=== PATIENT | female | born 1990 | race Caucasian/White ===

== ENCOUNTER 2021-07-05 11:37 | Emergency (ER) | payer BC, SELFPAY ==
[2021-07-05 11:39] VITALS: BP 135/93; PULSE 93; RESP 18; TEMP 37.2; O2SAT 100; BMI 37.8
--- NOTE | 2021-07-05 12:00 | EX.ED.DYSGE1 ---
HPI History of Present Illness Chief Complaint: Dizziness Informant: patient Onset/Context/Timing Onset: Yesterday Narrative Narrative: Patient developed congestion and body aches 2 days ago. Because of known exposure to COVID she did take a home test which was positive. She has now developed nausea and vomiting and cannot keep anything down. Her primary concern is that she has not been able to keep down her thyroid medication. [facility] Medical History (Updated 07/05/21 @ 15:[address] Yelena Saleh MD) Hypocalcemia Hypothyroidism Home Medications calcitriol 0.5 mcg PO BID 07/05/21 [History Last Taken Unknown] calcium carbonate-vitamin D3 1 cap PO TID 07/05/21 [History Last Taken Unknown] levothyroxine 137 mcg PO DAILY 07/05/21 [History Last Taken Unknown] ondansetron 4 mg PO Q8H PRN #10 tab 07/05/21 [Rx Last Taken Unknown] Allergy/AdvReac Type Severity Reaction Status Date / Time Penicillins [PCN] Allergy Swelling Verified 07/05/21 11:39 Surgical History H/O thyroidectomy Social History Smoking Status: Never smoker ROS ROS ED Constitutional Constitutional ED: Denies chills or fever(s) Eyes Eyes: Denies change in vision or discharge from eye(s) ENT ENT ED: Reports rhinorrhea and other Details: Congestion ; Denies discharge from eye(s) or sore throat Cardiovascular Cardiovascular: Denies chest pain or palpitations Respiratory/Chest Respiratory/Chest: Reports cough and sputum; Denies dyspnea Gastrointestinal Gastrointestinal: Reports nausea and vomiting; Denies abdominal pain or diarrhea Genitourinary Genitourinary ED: Denies difficulty urinating or dysuria Musculoskeletal Musculoskeletal: Reports myalgias; Denies back pain or extremity pain Integumentary Denies Abrasions or rash Neurologic Neurologic: Denies headache(s) or weakness Allergic/Immunologic Allergic/Immunologic ED: Denies lip swelling or urticaria EXAM Physical Exam Const Vital Signs: 07/05/21 11:39 07/05/21 13:00 07/05/21 15:00 Temperature 98.9 F Temperature Source Temporal Pulse Rate 93 86 Respiratory Rate 18 16 Respiratory Effort Normal Non-Labored Respiratory Pattern Normal Blood Pressure 135/93 H Blood Pressure Mean 107 Pulse Ox 100 99 Oxygen Delivery Method Room Air Room Air Positive well nourished and well developed General Appearance ED: well developed HEENT Reports normocephalic and head/scalp atraumatic Eyes PERRL and EOMs intact bilaterally Neck supple Chest Wall inspection of chest normal and palpation of chest normal Resp normal respiratory effort and clear to auscultation bilaterally Cardio regular rate and regular rhythm GI normal to inspection, nondistended, normoactive bowel sounds and non-tender Palpation: soft Back/Spine no CVA tenderness Extremity normal to inspection Neuro oriented x3 and no sensory deficits noted Sensorium / Orientation: alert Motor Exam: strength 5/5 throughout Psych mental status grossly normal Skin no rashes or lesions noted MDM MDM MDM Narrative Medical decision making narrative: Patient given IV fluids and lab work obtained. Patient placed on cardiac exercise specialist with no arrhythmia. Lab Data Attestation: I reviewed the patient's lab results. Labs: Laboratory Results - last 24 hr 07/05/21 07/05/21 12:20 12:20 WBC 6.5 RBC 5.02 Hgb 15.0 Hct 45.4 MCV 90.4 MCH 29.9 MCHC 33.0 RDW Std Deviation 40.6 RDW Coeff of Rosalba 12.3 Plt Count 289 MPV 9.6 Immature Gran % (Auto) 0.300 Neut % (Auto) 63.9 Lymph % (Auto) 21.3 [place] % (Auto) 13.3 H Eos % (Auto) 0.9 Baso % (Auto) 0.3 Absolute Neuts (auto) 4.1 Absolute Lymphs (auto) 1.38 Nucleated RBC % 0 Sodium 138 Potassium 3.8 Chloride 104 Carbon Dioxide 27.0 Anion Gap 7 BUN 7 Creatinine 0.79 Estim Creat Clear Calc 79.29 Est GFR (MDRD) Af Amer 110 Est GFR (MDRD) Non-Af 91 BUN/Creatinine Ratio 8.9 L Glucose 92 Calcium 6.7 L Treatment and Re-Evaluation Narrative: Lab work remarkable only for low calcium at 6.7. Nausea is improved. She is ordered her calcitriol and calcium/vitamin D and tolerates this orally without difficulty. She will be given a prescription for Zofran at home and will resume her home meds. Discharge Plan Triage Chief Complaint: Dizziness ED Provider: Yelena Saleh Dx/Rx/DC Orders Clinical Impression: COVID-19, Vomiting Instructions: Coronavirus Disease 2019 (COVID-19): Overview, Coronavirus Disease 2019 (COVID-19): Caring for Yourself or Others, ED Vomiting (Adult) Prescriptions: New ondansetron 4 mg tablet,disintegrating 4 mg PO Q8H PRN (Reason: nausea and vomiting) Qty: 10 RF: 0 No Action levothyroxine 137 mcg Tablet 137 mcg PO DAILY RF: 0 calcitriol 0.5 mcg Capsule 0.5 mcg PO BID RF: 0 calcium carbonate-vitamin D3 500 mg(1,250mg) -50 unit Capsule 1 cap PO TID RF: 0 Primary Care Provider: Care Physician,No Primary Referrals: Yocasta Verma MD [STAFF PHYSICIAN] - As Needed Care Physician,No Primary [Primary Care Provider] - Disposition Disposition: Home, Self Care
[2021-07-05 12:41] LABS: Anion Gap 7 (5-15); BUN 7 mg/dL (7-18); BUN/Creat Ratio 8.9 RATIO (10-20); Calcium,Total 6.7 mg/dL (8.5-10.1); Chloride 104 mmol/L (98-107); Creatinine, Serum 0.79 mg/dL (0.55-1.02); EST Glomerular Filtration Rate 91 mL/min (>60); Est Glom Filt Rate - Afr Amer 110 mL/min (>60); Estimated Creatinine Clearance 79.29 ml/min; Glucose 92 mg/dL (74-106); Potassium 3.8 mmol/L (3.5-5.1); Sodium Level 138 mmol/L (136-145)
[2021-07-05 12:43] LABS: Absolute Lymphocyte Count 1.38 X10^3/uL (0.83-4.51); Absolute Neutrophil Count 4.1 X10^3/uL (2.0-7.7); Basophil# 0.02 X10^3/uL; Basophil% 0.3 % (0-1); Eosinophil# 0.06 X10^3/uL; Eosinophils% 0.9 % (0-5); Hematocrit 45.4 % (37-47); Lymphocyte # 1.38 X10^3/ul (0.83-4.51); Lymphocyte % 21.3 % (19-41); Mean Corpuscular Hgb 29.9 pg (27.0-32.0); Mean Corpuscular Volume 90.4 fL (81-99); Mean Platelet Vol. 9.6 fl (6.2-12.0); Monocyte# 0.86 X10^3/uL; Monocyte% 13.3 % (0-10); NRBC Flagged by Analyzer 0 % (0-5); Neutrophil # 4.13 X10^3/uL (2.7-7.7); Neutrophil % 63.9 % (47-70); Platelet Count 289 K/mm3 (150-450); RBC Distribution Width CV 12.3 % (11.6-14.6); RBC Distribution Width SD 40.6 fl (35.1-43.9); Red Blood Count 5.02 M/mm3 (4.2-5.4); White Blood Count 6.5 K/mm3 (4.4-11.0)
[2021-07-05] MEDS: Ondansetron 4 MG/2 ML Vial IV (12:53)
[2021-07-05 15:00] VITALS: PULSE 86; RESP 16; O2SAT 99
[2021-07-05] MEDS: Calcitriol 0.25 MCG Capsule 0.5 MCG PO (15:13)
[2021-07-05] MEDS: Calcium Carb/Vitamin D 1 TABLET Tablet PO (15:13)
== END 2021-07-05 15:46 | disposition home or self-care (01) ==
PROVIDERS: Emergency Provider Emergency Medicine; Visit Provider Emergency Medicine
DX: U07.1 COVID-19 (principal); R42 Dizziness and giddiness; R11.2 Nausea with vomiting, unspecified; E03.9 Hypothyroidism, unspecified
CPT/HCPCS: 80048; 85025; 96361; 96374; 99285; J7050; A4216; J2405

== ENCOUNTER 2022-08-31 05:55 | Emergency (ER) | payer BC, SELFPAY ==
[2022-08-31 05:56] VITALS: BP 127/78; PULSE 93; RESP 16; TEMP 37.3; O2SAT 100; BMI 39.6
--- NOTE | 2022-08-31 06:13 | EX.ED.DYSGE1 ---
HPI History of Present Illness Chief Complaint: Numb/Ting Informant: patient Narrative Narrative: Patient with numbness tingling that started last night gradually, both sides of face, both arms, now this morning both legs and basically worse. No weakness. No vision changes. No trouble breathing, no headache, no recent injury. She states this is happened multiple times in the past when her calcium levels are low despite being compliant with her calcium supplements and her calcitriol, all of which she has been on since her thyroid and parathyroids were removed due to thyroid cancer. [facility] Medical History (Updated 08/31/22 @ 06:[address] Kenneth Cm MD) Hypocalcemia Hypothyroidism Thyroid cancer Home Medications calcitriol 0.5 mcg capsule 0.5 mcg PO BID 07/05/21 [History Last Taken Unknown] calcium carbonate-vitamin D3 500 mg (1,250 mg)-50 unit capsule 1 cap PO TID 07/05/21 [History Last Taken Unknown] levothyroxine 137 mcg tablet 137 mcg PO SUMOWETHFRSA 07/05/21 [History Last Taken Unknown] ondansetron 4 mg disintegrating tablet 4 mg PO Q8H PRN nausea and vomiting #10 tabs 07/05/21 [Rx Last Taken Unknown] levothyroxine 75 mcg tablet 75 mcg PO TU 08/31/22 [History Last Taken Unknown] topiramate 25 mg tablet 50 mg PO QHS 08/31/22 [History Last Taken Unknown] Allergy/AdvReac Type Severity Reaction Status Date / Time Penicillins [PCN] Allergy Swelling Verified 08/31/22 05:59 prednisone Allergy Swelling Verified 08/31/22 05:59 Surgical History H/O thyroidectomy Social History Smoking Status: Never smoker ROS ROS ED Constitutional Constitutional ED: Denies chills or fever(s) Eyes Eyes: Denies change in vision or diplopia ENT ENT ED: Denies rhinorrhea or sore throat Cardiovascular Cardiovascular: Denies chest pain or palpitations Respiratory/Chest Respiratory/Chest: Denies cough or dyspnea Gastrointestinal Gastrointestinal: Denies abdominal pain, diarrhea, nausea or vomiting Genitourinary Genitourinary ED: Denies dysuria or hematuria Musculoskeletal Musculoskeletal: Denies back pain or neck pain Integumentary Denies abscess or rash Neurologic Neurologic: Reports paresthesias; Denies headache(s) or weakness Psychiatric Psychiatric: Denies anxiety or suicidal thoughts EXAM Physical Exam Const Vital Signs: 08/31/22 05:56 Temperature 99.1 F Temperature Source Temporal Pulse Rate 93 Respiratory Rate 16 Blood Pressure 127/78 H Blood Pressure Mean 94 Pulse Ox 100 Oxygen Delivery Method Room Air Positive well nourished and well developed General Appearance ED: well developed and NAD HEENT Reports moist mucous membranes normocephalic and atraumatic Eyes PERRL and EOMs intact bilaterally Neck full ROM and supple Resp normal respiratory effort and clear to auscultation bilaterally Cardio regular rate, regular rhythm and no murmurs Rate: Negative for tachycardic Back/Spine no CVA tenderness General Back: other FROM Extremity normal to inspection General Extremety ED: Negative for edema, pulses abnormal or tenderness General Extremity: Negative for edema or pulses abnormal Neuro oriented x3, CN's II-XII intact bilaterally and no sensory deficits noted Sensorium / Orientation: awake and alert Motor Exam: strength 5/5 throughout Skin no rashes or lesions noted and no wounds MDM MDM MDM Narrative Medical decision making narrative: Patient is hypocalcemic at 7.0, she was lowered to the last time she was here for this. I did consider obtaining liver enzymes to check her albumin level, however since she is symptomatic I do not think that is necessary right now emergently, she was given a gram of IV calcium gluconate over an hour, and she is comfortable with going home after that, and following up with her hvac services professional. Advised to continue her calcitriol and calcium supplements as previously prescribed until she follows up. Lab Data Attestation: I reviewed the patient's lab results. 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), Hypocalcemia Instructions: ED Hypocalcemia (Adult) Prescriptions: Continued levothyroxine 137 mcg Tablet 137 mcg PO SUMOWETHFRSA calcitriol 0.5 mcg Capsule 0.5 mcg PO BID calcium carbonate-vitamin D3 500 mg(1,250mg) -50 unit Capsule 1 cap PO TID ondansetron 4 mg tablet,disintegrating 4 mg PO Q8H PRN (Reason: nausea and vomiting) Qty: 10 0RF levothyroxine 75 mcg tablet 75 mcg PO TU topiramate 25 mg tablet 50 mg PO QHS Primary Care Provider: Care Physician,No Primary Referrals: Care Physician,No Primary [Primary Care Provider] - Doctor,Your [Non-Staff] - (Follow-up with your hvac services professional via telephone to see if they want to adjust any medications or see you in the office again, obtain other blood work, etc.) Activity Restrictions/Additional Instructions: Ca level 7.0 today Disposition Disposition: Home, Self Care
[2022-08-31 06:35] LABS: Anion Gap 9 (5-15); BUN 12 mg/dL (7-18); BUN/Creat Ratio 12.2 RATIO (10-20); Chloride 109 mmol/L (98-107); Creatinine, Serum 0.99 mg/dL (0.55-1.02); EST Glomerular Filtration Rate 70 mL/min (>60); Est Glom Filt Rate - Afr Amer 85 mL/min (>60); Glucose 103 mg/dL (74-106); Potassium 3.4 mmol/L (3.5-5.1); Sodium Level 140 mmol/L (136-145)
[2022-08-31 07:51] VITALS: BP 122/64
== END 2022-08-31 07:56 | disposition home or self-care (01) ==
PROVIDERS: Emergency Provider Emergency Medicine; Visit Provider Emergency Medicine
DX: E20.9 Hypoparathyroidism, unspecified (principal); E03.9 Hypothyroidism, unspecified; Z79.899 Other long term (current) drug therapy; E89.0 Postprocedural hypothyroidism; E83.51 Hypocalcemia; Z85.850 Personal history of malignant neoplasm of thyroid
CPT/HCPCS: 80048; 96365; 96366; 99282; A4216; J0612

== ENCOUNTER 2023-04-30 13:43 | Outpatient (CLI) | payer MEDICAID, SELFPAY ==
[2023-04-30 14:02] VITALS: BP 129/75; PULSE 96; RESP 16; TEMP 36.7
[2023-04-30 14:39] VITALS: BMI 41.8
[2023-04-30 14:59] VITALS: BP 132/66; PULSE 76; RESP 16; TEMP 36.5
--- NOTE | 2023-04-30 20:43 | OB.TRI.HP_ITS ---
HPI - General General Date of Admission: 04/30/23 Date of Service: 04/30/23 Chief Complaint: contractions HPI Narrative BRIGHT SPRAGUE, is a 32 F who presents at 38+5 for r/o labor. Maternal Data Information Final SEVERINO: 05/09/23 Gestational age: 38+5 [facility] Medical History (Updated 04/30/23 @ 20:[address] Yelena Bosch MD) COVID-19 Thyroid cancer Home Medications calcitriol 0.5 mcg capsule 0.5 mcg PO DAILY 10/19/20 [History Last Taken Unknown] calcium cit 250 mg-ergocalciferol (vit D2) 2.5 mcg (100 unit) tablet tab PO 10/19/20 [History Last Taken Unknown] levothyroxine 150 mcg tablet ea PO 10/19/20 [History Last Taken Unknown] metformin 500 mg tablet 500 mg PO DAILY 10/19/20 [History Last Taken Unknown] aspirin 81 mg tablet,delayed release (Adult Low Dose Aspirin) 81 mg PO DAILY 04/30/23 [History Last Taken Unknown] Allergy/AdvReac Type Severity Reaction Status Date / Time No Known Allergies Allergy Verified 04/30/23 15:06 Family History (Updated 10/19/20 @ 14:17 by Feli Moscoso) Other Diabetes Hypertension Surgical History (Updated 10/19/20 @ 14:16 by Feli Moscoso) History of thyroidectomy Social History (Updated 10/19/20 @ 14:17 by Feli Moscoso) Smoking Status: Never smoker alcohol intake: current alcohol intake frequency: a few times a week History 1 Elective abortions Hx Para 0 Spontaneous abortions Hx # Term Pregnancies Ectopic pregnancies Hx # Pregnancies Multiple births # of living children NST FHR Rate Baby A Baseline: 130 Variability:: Moderate Accelerations:: 15 x 15 Decelerations:: None NST Reactive:: Yes FHR Category:: Category I Uterine Activity:: occasional contraction Assessment & Plan (1) 38 weeks gestation of : (2) False labor after 37 completed weeks of gestation: PLAN: Plan cervix closed. Discharged with labor precautions
== END 2023-04-30 14:54 | disposition home or self-care (01) ==
LOC: WPOUT 13:55 → WP 13:55
PROVIDERS: PCP Nurse Practitioner Family; Referring Provider Obstetrics & Gynecology; Visit Provider Obstetrics & Gynecology
DX: O47.1 False labor at or after 37 completed weeks of gestation (principal); Z3A.38 38 weeks gestation of pregnancy
CPT/HCPCS: 59025; 59050; 99221; G0378

== ENCOUNTER 2023-05-02 19:00 | Inpatient (IN) | payer MEDICAID, SELFPAY ==
[2023-05-02 19:34] VITALS: PULSE 103; RESP 16; O2SAT 96
[2023-05-02 19:35] VITALS: BP 123/75; PULSE 109; PULSE 85; TEMP 36.6; O2SAT 93; O2SAT 97
[2023-05-02 19:40] VITALS: BMI 42.7
--- NOTE | 2023-05-02 20:18 | HP.PCM.OB_ITS ---
HPI - General General Date of Admission: 05/02/23 HPI Narrative BRIGHT SPRAGUE, is a 32 F at 39 weeks gestation who presents for scheduled induction of labor for obesity. complicated by anemia, and history of thyroidectomy and LGSIL. Maternal Data Information SEVERINO Calculator Estimated Delivery Date Method Current WG Current Estimate 05/09/23 Manual 39w 0d Final SEVERINO: 05/09/23 PFSH PFSH Medical History (Updated 05/02/23 @ 20:29 by Cristal Kelley CNM) Hypocalcemia Hypothyroidism Thyroid cancer Home Medications calcitriol 0.5 mcg capsule 0.5 mcg PO BID 07/05/21 [History Last Taken Unknown] calcium carbonate-vitamin D3 500 mg (1,250 mg)-50 unit capsule 1 cap PO TID 07/05/21 [History Last Taken Unknown] levothyroxine 137 mcg tablet 137 mcg PO SUMOWETHFRSA 07/05/21 [History Last Take n Unknown] ondansetron 4 mg disintegrating tablet 4 mg PO Q8H PRN nausea and vomiting #10 tabs 07/05/21 [Rx Last Taken Unknown] levothyroxine 75 mcg tablet 75 mcg PO TU 08/31/22 [History Last Taken Unknown] topiramate 25 mg tablet 50 mg PO QHS 08/31/22 [History Last Taken Unknown] Allergy/AdvReac Type Severity Reaction Status Date / Time prednisone Allergy Swelling Verified 05/02/23 19:43 Surgical History (Updated 05/02/23 @ 20:23 by Cristal Kelley CNM) H/O thyroidectomy Social History Smoking Status: Never smoker ROS Eyes Eyes: Denies blurry vision, change in vision or spots in vision ENT HEENT: Denies dizziness or headache(s) Cardiovascular Cardiovascular: Denies abdominal pain, chest pain or dyspnea Respiratory/Chest Respiratory/Chest: Denies cough, dyspnea, shortness of breath at rest or shortness of breath with exertion Gastrointestinal Gastrointestinal: Denies abdominal pain, diarrhea or vomiting Genitourinary Genitourinary: Denies change in urinary stream, difficulty urinating or dysuria Musculoskeletal Musculoskeletal: Reports none Integumentary Integumentary: Denies rash Neurologic Neurologic: Denies dizziness, headache(s), memory loss or weakness Psychiatric Psychiatric: Reports none Vital Signs Vital Signs Vital Signs: 05/02/23 19:35 05/02/23 19:35 05/02/23 19:35 Temperature Temperature Source Pulse Rate 85 Respiratory Rate Blood Pressure 123/75 H BP Systolic 123 BP Diastolic 75 Pulse Ox 97 05/02/23 19:35 05/02/23 19:34 05/02/23 19:34 Temperature Temperature Source Pulse Rate 109 H 103 H Respiratory Rate 16 Blood Pressure BP Systolic BP Diastolic Pulse Ox 05/02/23 19:35 05/02/23 19:34 05/02/23 19:35 Temperature Temperature Source Temporal Pulse Rate Respiratory Rate Blood Pressure BP Systolic BP Diastolic Pulse Ox 93 96 05/02/23 19:35 Temperature 97.8 F Temperature Source Pulse Rate Respiratory Rate Blood Pressure BP Systolic BP Diastolic Pulse Ox Weight Weight: 226 lb 8 oz Body Mass Index (BMI) 42.7 Physical Exam Const alert, oriented x3 and no apparent distress General Appearance: cooperative Orientation / Consciousness: awake Exam Limitations: no limitations HEENT normocephalic Head and Scalp: normal to inspection Eyes General Eye: normal appearance of both eyes Neck full ROM and no lymphadenopathy Lymph Lymphatic: no lymphadenopathy noted Chest inspection of chest normal Resp normal respiratory effort, normal air movement and clear to auscultation bilaterally Effort and Inspection: able to speak in complete sentences and symmetric chest movement Cardio regular rate and regular rhythm GI normal to inspection, nondistended, normoactive bowel sounds Back/Spine normal ROM Extremity full ROM and no calf tenderness Skin no rashes or lesions noted General Skin Exam: no breakdown Neuro oriented x3 and CN's II-XII intact bilaterally Psych mental status grossly normal and thought process normal Labs Labs Labs: Hct 45.4 % (37-47) Hgb 15.0 g/dL (12.0-15.0) GBS negative Assessment & Plan (1) H/O thyroidectomy: (2) 39 weeks gestation of : (3) Encounter for induction of labor: (4) Obesity affecting : QUALIFIERS: Trimester: third trimester Obesity type affecting : unspecified obesity Qualified Code(s): O99.213 - Obesity co mplicating , third trimester (5) LGSIL on Pap smear of cervix: PLAN: Plan Admit to labor and delivery GBS negative CE- closed/thick/high Cytotec 25 mcg PO x 1 now and continue every 4 hours with a maximum of [address] Doshi aware of admission, plan of care and is collaborating physician
[2023-05-02] MEDS: 0.9% Saline Lock 10 ML Syringe IV (20:52)
[2023-05-02 21:18] LABS: Absolute Lymphocyte Count 2.77 X10^3/uL (0.83-4.51); Absolute Neutrophil Count 8.7 X10^3/uL (2.0-7.7); Basophil# 0.05 X10^3/uL; Basophil% 0.4 % (0-1); Eosinophil# 0.11 X10^3/uL; Eosinophils% 0.8 % (0-5); Hematocrit 39.2 % (37-47); Lymphocyte # 2.77 X10^3/ul (0.83-4.51); Lymphocyte % 21.3 % (19-41); Mean Corp Hgb Conc 33.2 g/dL (32-36); Mean Corpuscular Volume 87.3 fL (81-99); Mean Platelet Vol. 10.4 fl (6.2-12.0); Monocyte# 1.24 X10^3/uL; Monocyte% 9.5 % (0-10); NRBC Flagged by Analyzer 0 % (0-5); Neutrophil # 8.72 X10^3/uL (2.7-7.7); Neutrophil % 66.9 % (47-70); Platelet Count 292 K/mm3 (150-450); RBC Distribution Width CV 14.5 % (11.6-14.6); RBC Distribution Width SD 46.2 fl (35.1-43.9); Red Blood Count 4.49 M/mm3 (4.2-5.4)
[2023-05-02] MEDS: CHLORHEXIDINE GLUC 2% CLOTH 1 EACH TOWELETTE TOPICAL (21:33)
[2023-05-02] MEDS: miSOPROStol 25 MCG TABLET PO (21:33)
[2023-05-02 21:50] VITALS: PULSE 84; RESP 16; O2SAT 97
[2023-05-02 21:51] VITALS: BP 122/66; PULSE 82; TEMP 36.9
[2023-05-02 21:52] LABS: Syphilis Antibodies Non-reactive
[2023-05-02 23:15] VITALS: RESP 16; TEMP 36.8; O2SAT 98
[2023-05-02 23:16] VITALS: BP 133/80; PULSE 93
[2023-05-02] MEDS: Lactated Ringers 1,000 ML 50 ML IV (23:47)
[2023-05-03] VITALS (63 sets, daily range): BP systolic 113–145; BP diastolic 55–94; PULSE 68–97; RESP 15–20; TEMP 36.4–37.3; O2SAT 96–100
[2023-05-03] MEDS: LACTATED RINGERS 250 ML 999 ML IV (00:35)
[2023-05-03] MEDS: miSOPROStol 25 MCG TABLET PO ×3 (01:37→09:48)
--- NOTE | 2023-05-03 07:02 | PCM.PN.CNM ---
Subjective Subjective Patient seen at bedside. Denies pain. Starting to feel mild cramps. Objective Data Objective Data Vital Signs: Vital Signs Temp Pulse Resp BP Pulse Ox 97.5 F L 87 16 137/71 H 99 05/03/23 05:36 05/03/23 05:38 05/03/23 05:36 05/03/23 05:38 05/03/23 05:36 Weight: 226 lb 8 oz Body Mass Index (BMI) 42.7 Intake & Output: Intake and Output for Last 24 Hours 05/01/23 05/02/23 05/03/23 23:59 23:59 23:59 Intake Total 250 / 250 Balance 250 / 250 Lab / Micro Data 05/02/23 20:10 Labs: Laboratory Results - last 24 hr 05/02/23 20:10: WBC 13.0 H, RBC 4.49, Hgb 13.0, Hct 39.2, MCV 87.3, MCH 29.0, MCHC 33.2, RDW Std Deviation 46.2 H, RDW Coeff of Rosalba 14.5, Plt Count 292, MPV 10.4, Immature Gran % (Auto) 1.100 H, Neut % (Auto) 66.9, Lymph % (Auto) 21.3, [place] % (Auto) 9.5, Eos % (Auto) 0.8, Baso % (Auto) 0.4, Absolute Neuts (auto) 8.7 H, Absolute Lymphs (auto) 2.77, Nucleated RBC % 0, Syphilis Total Ab Non-reactive, Blood Type O POSITIVE, Antibody Screen NEGATIVE ROS Eyes Eyes: Denies blurry vision, change in vision or spots in vision ENT HEENT: Denies dizziness or headache(s) Cardiovascular Cardiovascular: Denies abdominal pain, chest pain or dyspnea Respiratory/Chest Respiratory/Chest: Denies cough, dyspnea, shortness of breath at rest or shortness of breath with exertion Gastrointestinal Gastrointestinal: Denies abdominal pain, diarrhea or vomiting Genitourinary Genitourinary: Denies change in urinary stream, difficulty urinating or dysuria Musculoskeletal Musculoskeletal: Reports none Integumentary Integumentary: Denies rash Neurologic Neurologic: Denies dizziness, headache(s), memory loss or weakness Physical Exam Const alert and no apparent distress General Appearance: cooperative Orientation / Consciousness: awake Exam Limitations: no limitations HEENT normocephalic Eyes General Eye: normal appearance of both eyes Neck full ROM Chest inspection of chest normal Resp normal respiratory effort and normal air movement Effort and Inspection: symmetric chest movement Auscultation: clear to auscultation bilaterally Cardio regular rate GI soft to palpation, non-tender and non-distended Inspection: and other Back/Spine normal ROM Extremity full ROM, normal capillary refill and no calf tenderness Skin no rashes or lesions noted Neuro oriented x3 and CN's II-XII intact bilaterally Psych mental status grossly normal NST FHR Rate Baby A Baseline: 140 Variability:: Moderate Accelerations:: 15 x 15 Decelerations:: None NST Reactive:: Yes FHR Category:: Category I Uterine Activity:: Irritability Assessment & Plan (1) Encounter for induction of labor: (2) 39 weeks gestation of : (3) H/O thyroidectomy: (4) Obesity affecting : QUALIFIERS: Trimester: third trimester Obesity type affecting : unspecified obesity Qualified Code(s): O99.213 - Obesity complicating , third trimester (5) LGSIL on Pap smear of cervix: (6) Hypothyroidism: PLAN: Plan CE- closed /thick/ posterior- per nursing Cytotec 25 mcg PO every 4 hours- Just took dose #3 NST reactive Patient to eat light breakfast Anticipate placement Gomez once 1cm
[2023-05-03] MEDS: 0.9% Normal Saline Single 100 ML IV.SOLN. INTRA-UTER (08:30)
[2023-05-03] MEDS: CHLORHEXIDINE GLUC 2% CLOTH 1 EACH TOWELETTE TOPICAL ×2 (08:48→21:40)
--- NOTE | 2023-05-03 08:49 | PN.OBGYN_ITS ---
Subjective Subjective Resting comfortably in bed. Partner at bedside Objective Data Objective Data Vital Signs: Vital Signs Temp Pulse Resp BP Pulse Ox 97.5 F L 87 16 137/71 H 99 05/03/23 05:36 05/03/23 05:38 05/03/23 05:36 05/03/23 05:38 05/03/23 05:36 Weight: 226 lb 8 oz Body Mass Index (BMI) 42.7 Intake & Output: Intake and Output for Last 24 Hours 05/01/23 05/02/23 05/03/23 23:59 23:59 23:59 Intake Total 250 / 250 Balance 250 / 250 Lab / Micro Data 05/02/23 20:10 Labs: Laboratory Results - last 24 hr 05/02/23 20:10: WBC 13.0 H, RBC 4.49, Hgb 13.0, Hct 39.2, MCV 87.3, MCH 29.0, MC HC 33.2, RDW Std Deviation 46.2 H, RDW Coeff of Rosalba 14.5, Plt Count 292, MPV 10.4, Immature Gran % (Auto) 1.100 H, Neut % (Auto) 66.9, Lymph % (Auto) 21.3, [place] % (Auto) 9.5, Eos % (Auto) 0.8, Baso % (Auto) 0.4, Absolute Neuts (auto) 8.7 H, Absolute Lymphs (auto) 2.77, Nucleated RBC % 0, Syphilis Total Ab Non- reactive, Blood Type O POSITIVE, Antibody Screen NEGATIVE Physical Exam Manual OB Exam: presentation cephalic, dilated closed, effaced 50%, station -3 and other coleman catheter inserted through cervix with stylus. 30ml NS instilled. Patient tolerated well NST FHR Rate Baby A Baseline: 130 Variability:: Moderate Accelerations:: 15 x 15 Decelerations:: None FHR Category:: Category I Uterine Activity:: Irregular, mild Assessment & Plan (1) Obesity affecting : QUALIFIERS: Trimester: third trimester Obesity type affecting : unspecified obesity Qualified Code(s): O99.213 - Obesity complicating , third trimester (2) Encounter for induction of labor: (3) 39 weeks gestation of : PLAN: Plan 1) Continue with active management. Coleman placed and will determine if cytotec to be given at 0945 or start pitocin based on cervical exam. 2) Continuous EFM, Category 1 FHT 3) Dr. Olson collaborative physician, notified of patient status and of above assessment and plan
[2023-05-03] MEDS: LACTATED RINGERS 500 ML 999 ML IV ×2 (09:14→18:18)
[2023-05-03] MEDS: Ondansetron 4 MG/2 ML Vial IV ×2 (10:19→23:56)
[2023-05-03] MEDS: Acetaminophen 500 MG Tablet PO (12:47)
[2023-05-03] MEDS: Levothyroxine 137 MCG Tablet PO (12:48)
[2023-05-03] MEDS: Oxytocin 15 Units/NS 250ml 15 UNITS/250 ML IV.SOLN 2 UNITS IV (13:47)
--- NOTE | 2023-05-03 18:00 | PN.OBGYN_ITS ---
Subjective Subjective Sitting up at side of bed on peanut ball, coping well with contractions. Partner at bedside and mother. Objective Data Objective Data Vital Signs: Vital Signs Temp Pulse Resp BP Pulse Ox 99.1 F 84 18 128/74 H 98 05/03/23 15:00 05/03/23 17:59 05/03/23 15:56 05/03/23 17:59 05/03/23 15:56 Weight: 226 lb 8 oz Body Mass Index (BMI) 42.7 Intake & Output: Intake and Output for Last 24 Hours 05/01/23 05/02/23 05/03/23 23:59 23:59 23:59 Intake Total 766.13 / 766.13 Balance 766.13 / 766.13 Lab / Micro Data 05/02/23 20:10 Labs: Laboratory Results - last 24 hr 05/02/23 20:10: WBC 13.0 H, RBC 4.49, Hgb 13.0, Hct 39.2, MCV 87.3, MCH 29.0, MCHC 33.2, RDW Std Deviation 46.2 H, RDW Coeff of Rosalba 14.5, Plt Count 292, MPV 10.4, Immature Gran % (Auto) 1.100 H, Neut % (Auto) 66.9, Lymph % (Auto) 21.3, [place] % (Auto) 9.5, Eos % (Auto) 0.8, Baso % (Auto) 0.4, Absolute Neuts (auto) 8.7 H, Absolute Lymphs (auto) 2.77, Nucleated RBC % 0, Syphilis Total Ab Non- reactive, Blood Type O POSITIVE, Antibody Screen NEGATIVE Physical Exam Manual OB Exam: presentation cephalic, dilated 4cm, effaced 60%, station - 2 and other arom clear fluid NST FHR Rate Baby A Baseline: 160 Variability:: Moderate Accelerations:: 15 x 15 Decelerations:: None FHR Category:: Category I and Category II Uterine Activity:: every 2 to 4 minutes, irregular Assessment & Plan (1) Encounter for induction of labor: (2) 39 weeks gestation of : (3) Obesity affecting : QUALIFIERS: Trimester: third trimester Obesity type affecting : unspecified obesity Qualified Code(s): O99.213 - Obesity complicating , third trimester PLAN: Plan 1) Continue with active management and pitocin induction 2) AROM clear fluid 3) Planning epidural for pain management 4) collaborative physician and notified of patient status and above assessment and plan.
[2023-05-03] MEDS: fentaNYL-bupivacaine (epidural) 100 ML BAG EPIDURAL (20:00)
[2023-05-03] MEDS: Lactated Ringers 1,000 ML 200 ML IV (20:42)
[2023-05-03] MEDS: Calcium Carb/Vitamin D 1 TABLET Tablet PO (21:40)
[2023-05-03] MEDS: 0.9% Saline Lock 10 ML Syringe IV (23:56)
[2023-05-04] VITALS (29 sets, daily range): BP systolic 98–134; BP diastolic 47–86; PULSE 65–114; RESP 14–23; TEMP 36.1–36.9; O2SAT 94–100
[2023-05-04] MEDS: LACTATED RINGERS 500 ML 999 ML IV (00:07)
[2023-05-04] MEDS: fentaNYL-bupivacaine (epidural) 100 ML BAG EPIDURAL (02:05)
[2023-05-04] MEDS: Lactated Ringers 1,000 ML 200 ML IV (02:47)
[2023-05-04] MEDS: Acetaminophen 500 MG Tablet PO (03:51)
[2023-05-04] MEDS: Levothyroxine 137 MCG Tablet PO (06:52)
--- NOTE | 2023-05-04 07:02 | PCM.PN.BLA ---
Progress Note pt doing well and comfortable with epidural. Assessment & Plan Assessment/Plan (1) 39 weeks gestation of : PLAN: Patient remains 4 cm this morning. It has been 12 hours since rupture of membranes with adequate contractions. Recommend section for failure to progress. Discussed r/b/a section, and patient gives consent and requests to proceed. (2) Encounter for induction of labor: (3) Obesity affecting : QUALIFIERS: Trimester: third trimester Obesity type affecting : unspecified obesity Qualified Code(s): O99.213 - Obesity complicating , third trimester
[2023-05-04] MEDS: Sodium Citrate/Citric Acid 30 ML UDC PO (07:19)
[2023-05-04] MEDS: Cefazolin 2 GM in 0.9% Normal Saline (100mL Bag) 100 ML IV (08:00)
[2023-05-04] MEDS: Azithromycin 500 MG in Dextrose 5%-Water (250mL Bag) 250 ML 250 MG IV (08:35)
--- NOTE | 2023-05-04 08:57 | OP.PCM_ITS ---
Problems Associated Problem List Diagnoses (1) 39 weeks gestation of : (2) Encounter for induction of labor: (3) Obesity affecting : (4) CPD (cephalo-pelvic disproportion): (5) Failure to progress in labor: Report of Operation Date of Procedure: 05/04/23 Pre-Operative Diagnosis: 39 week gestation, single IUP, obesity in , failure to progress in labor, CPD Post-Operative Diagnosis: As above Surgery/Procedure Performed:: PLTCS via pfannenstiel incision Description of Surgical Findings:: Narrow pelvis. VFI in cephalic presentation. Apgars 8, 9. Normal appearing uterus and bilateral adnexa. Surgeon: Sammie Olson building maintenance superintendent: Sylvie BOLTON Type of Anesthesia: Epidural Special Medications: None Specimen's removed: Placenta Drains: Coleman Estimated Blood Loss (mL): 700 Fluids Replaced: 1000 mL Description of Procedure: Indications: Pt presented at 39 week gestation for IOL given obesity and patient request for an elective induction. Induction was started with cytotec, followed by intracervical coleman, pitocin and AROM. The patient remained 4 cm for 12 hours after rupture with adequate contractions. Procedure: The patient was taken to the operating room where epidural anesthesia was found to be adequate. She was prepped and draped in the dorsal supine position with a leftward tilt. A Pfannenstiel skin incision was made and this was carried down to the underlying layer of fascia using the scalpel. The fascia was incised in the midline. The fascial incision was extended laterally using Deleon scissors. The fascia was dissected off the rectus muscles in a cephalad and caudad direction. The rectus muscles were in the midline. The peritoneum was entered bluntly with good visualization of the bladder. The peritoneal incision was extended using traction laterally. A bladder blade was inserted. A low transverse incision was made on the uterus with a scalpel. The uterine incision was extended with cephalad and caudad traction. The head was felt to be coming down asynclitic and the pelvis was narrow. The head was elevated and delivered through the hysterotomy in a flexed position, followed by the body of the without any traction, force, or delay. The cord was clamped and cut after a slight delay. Placenta delivered spontaneously. The uterus was cleared of all clot debris. The uterus was exteriorized. The hysterotomy was closed with 1-0 Vicryl in a running locked fashion. 1 additional [id number] suture using 1-0 Vicryl was placed for hemostasis. Adnexa were normal-appearing bilaterally. The uterus was placed back into the abdomen. Chi was placed over the lower uterine segment and hysterotomy. Hemostasis was noted. The peritoneum was closed with 3-0 Vicryl in a running fashion. The subfascial space was noted to be hemostatic. The fascia was closed with STRATAFIX in a running fashion. The subcutaneous space was irrigated and made hemostatic with the Bovie cautery. The subcutaneous space was reapproximated using 3-0 Vicryl. The skin was closed with 4-0 Monocryl in subcuticular fashion. A dressing was placed. Instrument, sponge, sharp counts were correct and the patient was taken to the recovery room in stable condition. Subject Scientific Research Sylvie BOLTON was present for the entire procedure and assisted with draping the patient, delivery of the infant, and closure. Grafts/Implants Used: None Procedure Start Time: 07:59 Procedure Stop Time: 08:48 Complications None Admit VTE Documentation VTE Present on Admission: No VTE Mechan Device Prophylaxis: SCD's
[2023-05-04] MEDS: Oxytocin 15 Units/NS 250ml 15 UNITS/250 ML IV.SOLN 83 UNITS IV (09:10)
[2023-05-04] MEDS: Lactated Ringers 1,000 ML 100 ML IV (09:19)
[2023-05-04] MEDS: Acetaminophen 500 MG Tablet 1000 MG PO ×3 (09:23→21:52)
[2023-05-04] MEDS: Ketorolac 30 MG/ML Syringe IV ×3 (09:23→21:25)
[2023-05-04] MEDS: 0.9% Saline Lock 10 ML Syringe IV ×4 (09:23→21:26)
[2023-05-04] MEDS: Calcitriol 0.25 MCG Capsule 0.5 MCG PO ×2 (10:59→21:52)
[2023-05-04] MEDS: HYDROmorphone 1 MG/ML Syringe IV (15:29)
[2023-05-04] MEDS: Enoxaparin 40 MG/0.4 ML Syringe SC (21:26)
--- NOTE | 2023-05-04 21:50 | NURSING ---
[place] JHAVERI called with pt update. IV leaking when lei HERRERA went to flush with NS 10 cc syringe following toradol dose. pt is difficult stick and doesn't want to be poked again for another IV placement. pt has one dose of toradol left on her APR. pt states her pain is well tolerated at this time. [place] JHAVERI states it is okay for pt to not receive last toradol dose. pt will get motrin and tylenol via scheduled doses on APR and then can have PO oxy for breakthrough pain, as needed. Lei updated on plan of care. no further needs noted.
[2023-05-04] MEDS: oxyCODONE 5 MG Tablet PO (23:20)
[2023-05-05] MEDS: Ibuprofen 600 MG Tablet PO ×4 (03:39→22:16)
[2023-05-05 03:41] VITALS: BP 115/72; PULSE 88; RESP 16; TEMP 36.5
[2023-05-05] MEDS: Acetaminophen 500 MG Tablet 1000 MG PO ×4 (03:46→22:21)
[2023-05-05] MEDS: Levothyroxine 137 MCG Tablet PO (06:15)
[2023-05-05 06:28] LABS: Hematocrit 32.6 % (37-47); Mean Corp Hgb Conc 33.7 g/dL (32-36); Mean Corpuscular Hgb 29.6 pg (27.0-32.0); Mean Corpuscular Volume 87.9 fL (81-99); Mean Platelet Vol. 9.8 fl (6.2-12.0); Platelet Count 231 K/mm3 (150-450); RBC Distribution Width CV 14.6 % (11.6-14.6); RBC Distribution Width SD 47.1 fl (35.1-43.9); Red Blood Count 3.71 M/mm3 (4.2-5.4); White Blood Count 16.3 K/mm3 (4.4-11.0)
[2023-05-05 08:02] VITALS: BP 133/83; PULSE 80; RESP 16; TEMP 36.8; O2SAT 100
--- NOTE | 2023-05-05 09:18 | PCM.PN.OB ---
Subjective Subjective Doing well per patient and nursing staff. Ambulating and taking PO without difficulty. Voiding and passing flatus. Pain controlled. , services for assistance. Denies headache, visual changes, chest pain, shortness of breath, leg pain or increased bleeding. Lochia normal. Objective Data Objective Data Vital Signs: Vital Signs Temp Pulse Resp BP Pulse Ox O2 Del Method 98.3 F 80 16 133/83 H 100 Room Air 05/05/23 08:02 05/05/23 08:02 05/05/23 08:02 05/05/23 08:02 05/05/23 08:02 05/05/23 08:02 Oxygen Delivery Method Room Air Weight: 226 lb 8 oz Body Mass Index (BMI) 42.7 Intake & Output: Intake and Output for Last 24 Hours 05/03/23 05/04/23 05/05/23 23:59 23:59 23:59 Intake Total 1813.46 / 1813.46 3974.30 / 3974.30 Output Total 100 / 100 1974 400 / 400 Balance 1713.46 / 1713.46 / 1998.30 -400 / -400 Lab / Micro Data 05/05/23 06:20 Labs: Laboratory Results - last 24 hr 05/05/23 06:20: WBC 16.3 H, RBC 3.71 L, Hgb 11.0 L, Hct 32.6 L, MCV 87.9, MCH 29.6, MCHC 33.7, RDW Std Deviation 47.1 H, RDW Coeff of Rosalba 14.6, Plt Count 231, MPV 9.8 ROS Constitutional Constitutional: Reports systems reviewed and no addt'l complaints, except as documented; Denies headache(s) Eyes Eyes: Denies acute decrease in peripheral vision, blurry vision or change in vision ENT HEENT: Reports systems reviewed and no addt'l complaints, except as documented Cardiovascular Cardiovascular: Denies chest pain or dizziness Respiratory/Chest Respiratory/Chest: Denies cough, dyspnea, dyspnea on exertion, shortness of breath at rest or shortness of breath with exertion Gastrointestinal Gastrointestinal: Denies abdominal pain, diarrhea, nausea or vomiting Genitourinary Genitourinary: Denies abdominal discomfort Musculoskeletal Musculoskeletal: Denies limited range of motion Integumentary Integumentary: Reports systems reviewed and no addt'l complaints, except as documented Neurologic Neurologic: Reports systems reviewed and no addt'l complaints, except as documented Psychiatric Psychiatric: Reports systems reviewed and no addt'l complaints, except as documented Endocrine Endocrinology: Reports systems reviewed and no addt'l complaints, except as documented Hematologic/Lymphatic Hematologic/Lymphatic: Reports systems reviewed and no addt'l complaints, except as documented Allergic/Immunologic Allergic/Immunologic: Reports systems reviewed and no addt'l complaints, except as documented Physical Exam Const alert and oriented x3 General Appearance: cooperative Orientation / Consciousness: awake, oriented to person, oriented to place and oriented to time Exam Limitations: no limitations HEENT normocephalic Head and Scalp: normal to inspection, normocephalic and atraumatic Face and Sinus: normal facial exam Eyes General Eye: normal appearance of both eyes Neck full ROM Chest Chest: symmetrical chest wall rise Resp normal respiratory effort and normal air movement Auscultation: clear to auscultation bilaterally Cardio regular rate, regular rhythm, S1 normal heart sound, S2 normal heart sound, no murmurs, no rub, no gallops and no clicks GI normal to inspection, nondistended, normoactive bowel sounds and non-tender GI Narrative: dressing dry and intact. appearance of the vagina normal Bladder / Kidney Exam: no CVA tenderness Back/Spine normal ROM Extremity normal to inspection and full ROM Skin no rashes or lesions noted Neuro oriented x3, CN's II-XII intact bilaterally and moves all extremities Sensorium / Orientation: awake, alert and oriented to person Motor Exam: clonus absent Deep Tendon Reflexes: Rt Patellar (L4): 2+ and Lt Patellar (L4): 2+ Assessment & Plan (1) Failure to progress in labor: (2) CPD (cephalo-pelvic disproportion): (3) Delivery by section: (4) Lactating mother: PLAN: Plan 1) POD #1 2) I&O 3) Vitals stable 4) 5) Planning D/C home tomorrow
[2023-05-05] MEDS: Senna/Docusate Sodium 1 Tablet PO (10:29)
[2023-05-05] MEDS: Calcitriol 0.25 MCG Capsule 0.5 MCG PO ×2 (10:29→22:18)
[2023-05-05 15:15] VITALS: BP 129/80; PULSE 80; RESP 18; TEMP 37.1; O2SAT 100
[2023-05-05 21:00] VITALS: BP 127/83; PULSE 76; RESP 16; TEMP 36.6; O2SAT 99
[2023-05-05] MEDS: Enoxaparin 40 MG/0.4 ML Syringe SC (21:10)
[2023-05-06 02:35] VITALS: BP 111/70; PULSE 72; RESP 16; TEMP 36.6; O2SAT 100
[2023-05-06] MEDS: Ibuprofen 600 MG Tablet PO ×2 (04:06→10:49)
[2023-05-06] MEDS: Acetaminophen 500 MG Tablet 1000 MG PO ×2 (04:06→10:49)
[2023-05-06] MEDS: Levothyroxine 137 MCG Tablet PO (07:02)
[2023-05-06 07:58] VITALS: BP 120/85; PULSE 78; RESP 16; TEMP 36.3; O2SAT 99
--- NOTE | 2023-05-06 08:42 | PCM.PN.OB ---
Subjective Subjective Pain well-controlled. Average lochia. Tolerating regular diet, urinating, ambulating without difficulty. Has had a bowel movement. Objective Data Objective Data Vital Signs: Vital Signs Temp Pulse Resp BP Pulse Ox O2 Del Method 97.3 F L 78 16 120/85 H 99 Room Air 05/06/23 07:58 05/06/23 07:58 05/06/23 07:58 05/06/23 07:58 05/06/23 07:58 05/06/23 07:58 Oxygen Delivery Method Room Air Weight: 102.739 kg Body Mass Index (BMI) 42.7 Intake & Output: Intake and Output for Last 24 Hours 05/04/23 05/05/23 05/06/23 23:59 23:59 23:59 Intake Total 3974.30 / 3974.30 Output Total 1974 400 / 400 Balance / 1998.30 -400 / -400 Lab / Micro Data 05/05/23 06:20 Physical Exam Narrative Extremities 2+ edema. Symmetrical. Const alert General Appearance: cooperative GI GI Narrative: soft, moderate distention, fundus firm, appropriately tender. Abdominal bandage clean dry and intact Assessment & Plan (1) Delivery by section: PLAN: day #2 status post vaginal delivery. Patient and are doing well. Discharge home with routine instructions and follow-up.
--- NOTE | 2023-05-06 08:43 | PCM.DC.SUM ---
Providers Date of Admission: 05/02/23 Date of Discharge: 05/06/23 Primary Care Physician: No Primary Care Phys Reason For Visit: PRIMAY Diagnosis Discharge Diagnosis (1) Delivery by section: Status: Acute Plan: day #2 status post vaginal delivery. Patient and are doing well. Discharge home with routine instructions and follow-up. Medications at Discharge Home Medications calcitriol 0.5 mcg capsule 0.5 mcg PO BID hypothyroidism 07/05/21 calcium carbonate-vitamin D3 500 mg (1,250 mg)-50 unit capsule 1 cap PO TID hypothyroidism 07/05/21 levothyroxine 137 mcg tablet 137 mcg PO SUMOWETHFRSA hypothyroidism 07/05/21 buspirone 5 mg tablet 5 mg PO PRN anxiety 05/03/23 ferrous sulfate 325 mg (65 mg iron) tablet (FeroSul) 325 mg PO DAILY anemia 05/03/23 mtuflffu-hsu-Hs-FA 1 mg tablet 1 tab PO DAILY 05/03/23 ibuprofen 600 mg tablet 600 mg PO Q6H PRN Pain 30 days #60 TABLETS 05/06/23 Hospital Course Operations - (Primary low transverse section performed on 05/04/2023.) Procedures None Summary of Care Provided Minutes Spent on Discharge: 23 Hospital Course: 32-year-old nulliparous fit patient admitted on 05/02/2023. She underwent Cytotec then Gomez and Pitocin induction of labor. She was induced for maternal obesity. She met criteria for arrest of dilation on 05/04/2023 and underwent primary section without difficulty. She had mild acute blood loss anemia appropriate for blood loss during surgery. By postoperative day #2 she was doing well and ready for discharge home with routine instructions and prescriptions. Weight / BMI Weight Weight: 102.739 kg Body Mass Index (BMI) 42.7 ABG / Lab / Microbiology Data 05/05/23 06:20 D/C Instructions Discharge Diet: No restrictions May resume sexual activity in: 4-6 weeks Lifting Restrictions: 20 pounds Additional Activity Instructions: Nothing in the vagina for 4-6 weeks. You may return to work/school in 6 weeks. Call your doctor if your incision/area has: Continuous Slow Oozing, Sudden Increased Bleeding, Increased Pain/ Swelling, Increased Redness and Foul Smelling Discharge Call your doctor if you observe: Fever of 101 or Higher and Using more than 1 pad per hour (for 2 hours) Suture Line Care: Avoid Pulling/Pushing and Avoid Pinching/Bending Cleanse incision/area with: Keep Dressing Clean & Dry Please Follow Up With: Sammie Olson DO When: Call to make an appointment for an incision check in 1 week at [phone] or send a MyChart as needed for nonurgent questions . You will need a post check in 6 weeks. Meaningful Use Info Meaningful Use Diagnoses (Choose all that apply): None applicable Discharge Plan Admission Admit Date/Time: 05/02/23 19:00 Primary Reason for Your Visit: Induction of labor and section Attending Provider: Sammie Olson Primary Care Provider: Care PhysicianWendy Primary Discharge Orders/Prescriptions Prescriptions: New ibuprofen [ibuprofen] 600 mg tablet 600 mg PO Q6H PRN (Reason: Pain) 30 Days Qty: 60 1RF Continued levothyroxine 137 mcg Tablet 137 mcg PO SUMOWETHFRSA calcitriol 0.5 mcg Capsule 0.5 mcg PO BID calcium carbonate-vitamin D3 500 mg(1,250mg) -50 unit Capsule 1 cap PO TID ferrous sulfate [FeroSul] 325 mg (65 mg iron) tablet 325 mg PO DAILY buspirone 5 mg tablet 5 mg PO PRN Hold Instructions: uyflzqom-chu-Bt-FA 1 mg tablet 1 tab PO DAILY Discontinued ondansetron 4 mg tablet,disintegrating 4 mg PO Q8H PRN (Reason: nausea and vomiting) Qty: 10 0RF levothyroxine 75 mcg tablet 75 mcg PO TU topiramate 25 mg tablet 50 mg PO QHS aspirin [Adult Low Dose Aspirin] 81 mg tablet,delayed release (DR/EC) 81 mg PO DAILY Referrals / Follow Up: Care Physician,No Primary [Primary Care Provider] - Disposition Disposition (needs filled in before D/C Order can be placed): Home, Self Care
[2023-05-06] MEDS: Calcitriol 0.25 MCG Capsule 0.5 MCG PO (10:49)
[2023-05-06] MEDS: Senna/Docusate Sodium 1 Tablet PO (10:49)
--- NOTE | 2023-05-06 10:49 | CASEMGMT ---
Social Work Assessment Labor and Delivery Unit Patient Address: [address] [place], [place] [address] Phone number: [phone] Date of Referral: 05/04/23 Time of Referral:? 8 Referred By: Sammie Olson Date of Intervention: 05/06/23?? Time of Intervention:? 1000 Reason for Referral:? anxiety, resources, had director of social work calling to check on during Sw completed chart review and acknowledges social work consult due to maternal mental health. Sw presented to bedside and introduced self to mother of baby (MOB- Renetta) and father of baby (FOB- Mika). Sw explained sw role during hospitalization and completed psychosocial assessment. History obtained from: medical records, MOB and FOB Household composition: Currently residing in the family home is MOB, FOB and now baby. Parents deny any issues or concerns with their current housing. Patient's parent/guardian status:?FABIAN reports that she and FOB have been together for 2.5 years. MOB states that they met through mutual friends. No concerns reported at this time regarding domestic violence or intimate partner violence. Medical History: ?FABIAN is 32 year old female who is 1, para 0- now 1 following labor and delivery of . FABIAN received routine care during with [facility]. FABIAN was an induction of labor and required delivery on 05/04/23 at 39 weeks gestation. Baby girl, named Judy Garrett, was born weighing 7lb 3oz and her apgars were 8 and 9 at one and five minutes of life, respectfully. FABIAN states that she is bottle feeding baby. Baby will be followed by Dr. Davis for pediatrics. Educational Status:? Both parents graduated from high school. Financial Status: Both parents are gainfully employed outside of the home. FABIAN works for Supplies:?? Childcare/Caregiver(s):? Transportation:?? Programs/Agencies Involved: ??? Children Services/Legal Issues:??? Behavioral Health Issues: ??Mental Health History:??? Substance Use History:?? Family History:? Drug Screens: ?? Family/Social Stressors:? Support Systems: Depression/Shaken Baby/Safe Sleeping:? ASSESSMENT:? Safe Plan of Care for related to substance use:? PLAN:? ?No other services requested or indicated
--- NOTE | 2023-05-06 11:15 | CASEMGMT ---
Social Work Assessment Labor and Delivery Unit Patient Address: [address] [place], [place] [address] Phone number: [phone] Date of Referral: 05/04/23 Time of Referral:? 1857 Referred By: Sammie Olson Date of Intervention: ??05/06/23 Time of Intervention:? 1000 Reason for Referral:? anxiety, resources, had child protective services social worker calling to check on during Sw completed chart review and acknowledges social work consult due to maternal mental health history. Sw presented to bedside and introduced self to mother of baby (MOB- Renetta) and father of baby (FOB- Mika). Sw explained reason for sw involvement and completed psychosocial assessment. History obtained from: medical records, MOB and FOB Household composition: Currently residing in the family home is MOB, FOB and now baby when ready for discharge. Parents deny any issues or concerns with housing that this time. Patient's parent/guardian status:? FABIAN states that she and NEENA have been together for 2.5 years, they met through mutual friends. No concerns reported regarding domestic violence or intimate partner violence. ? Medical History: ?FABIAN is 32 year old female who is 1, para 0- now 1 following labor and delivery. FABIAN received routine care during with [facility]. FABIAN presented to hospital for an induction of labor at 39 weeks gestation on 05/04/23. FABIAN required for delivery due to arrest of descent. Baby girl, named Judy Garrett, was born weighing 7lb 3oz and her apgars were 8 and 9 at one and five minutes of life, respectfully. MOB states that she is bottle feeding baby. MOB states that baby will be followed by Dr. Davis for pediatrics. Educational Status:? Both parents graduated from high school. Financial Status: Both parents are gainfully employed outside of the home. FABIAN works as a DSP and is able to take 9 weeks off of work for maternity leave. NEENA works in a factory and is able to take two weeks off of work. Infant Supplies:??Parents have obtained all necessary baby supplies, including: car seat, safe sleep space, clothes, diapers, wipes and feeding supplies. Childcare/Caregiver(s):? MOB will be the primary caregiver to baby along with FOB when he is not at work. When both parents have returned to work they have a supervising editor trailer that will provide childcare. Transportation:?No transportation barriers, both parents have their drivers license and reliable means of transportation. ? Programs/Agencies Involved: ???FABIAN is connected to insurance through [employer], and has a protective services case worker/ child protective services social worker that has been ensuring MOB is connected to the appropriate resources throughout . FABIAN is connected to [facility] and has an appointment scheduled for May 12. Children Services/Legal Issues:??? No history of involvement, no issues or concerns warranting referral to be made at this time. Behavioral Health Issues: ??Mental Health History:??FABIAN states that she has been diagnosed with anxiety, and is prescribed Buspar PRN. FOB denies mental health diagnsoes. ? Substance Use History:??MOB denies substance use prior to and during . Family History:?Parents deny family history of addiction/ substance use and significant mental health diagnoses such as bipolar and schizophrenia. ? Drug Screens: ??No drug screens observed during chart review. Family/Social Stressors:? Parents deny any issues, concerns or stressors at this time. Support Systems: Parents report that both sets of grandparents are supportive. FABIAN states that FOB is also one of her biggest supports. Depression/Shaken Baby/Safe Sleeping:? Sw educated parents on signs and symptoms of baby blues and depression and anxiety. Parents express understanding. Sw educated parents on shaken baby prevention and ABCs of safe sleep. Parents express understanding. ASSESSMENT:? MOB and baby admitted following labor and delivery of . Parents were talkative and open regarding their preparedness for baby and obtaining all necessary baby supplies. Parents were talkative and engaged during completion of psychosocial assessment. Parents have natural supports in place, and were receptive to sw involvement and support from sw. PLAN:? ?No other services requested or indicated Alexy Amaya, SHELLFISH GROWER, RN [employer]
== END 2023-05-06 11:40 | disposition home or self-care (01) | DRG 540 ==
PROVIDERS: Advanced Practice Midwife; Admitting Provider Obstetrics & Gynecology; Visit Provider Obstetrics & Gynecology
DX: O33.9 Maternal care for disproportion, unspecified (principal); O99.214 Obesity complicating childbirth; E89.0 Postprocedural hypothyroidism; O99.284 Endocrine, nutritional and metabolic diseases complicating childbirth; Z37.0 Single live birth; Z3A.39 39 weeks gestation of pregnancy; Z79.890 Hormone replacement therapy; Z79.899 Other long term (current) drug therapy
CPT/HCPCS: 59025; 59050; 85025; 85027; 86780; 86850; 86900; 86901; 99221; J7120; A4216; G0378; J2405

== ENCOUNTER → 2023-11-08 | Outpatient (CLI) | payer MEDICAID, SELFPAY ==
--- NOTE | 2023-11-08 08:20 | US_ITS ---
STUDY: ABDOMINAL ULTRASOUND - RIGHT UPPER QUADRANT REASON FOR VISIT: Female, 33 years old Generalized abdominal pain -- cramping TECHNIQUE: Ultrasound evaluation of the right upper quadrant was performed with real-time and static monique-scale imaging. TECHNICAL QUALITY: Adequate. COMPARISON: None. FINDINGS: Liver: The liver measures 14.8 cm. There is normal echogenicity of the liver. The bile ducts are within normal limits. There is hepatic color flow. The direction of portal flow is hepatopetal. There is no demonstrated mass lesion. Gallbladder: Normal distended gallbladder. The gallbladder wall measures 2.6 mm. There is a negative sonographic Tam''s sign. There is no pericholecystic fluid. There are no gallstones. Common Bile Duct (C.B.D.): The common bile duct measures 4. mm. Pancreas: Normal size of the head, body and tail of the pancreas. There is increased echogenicity of the pancreas. There is no demonstrated pancreatic mass or cyst. Right Kidney: Normal size of the right kidney. The right kidney measures 10.1 cm x 4.7 cm x 5.1 cm. Normal renal cortex. The right cortex measures 1.8 cm. There is no demonstrated renal mass or cyst. There is no right hydronephrosis. US/Abdomen Limited IMPRESSION: Normal right upper quadrant ultrasound examination. Electronically Signed: Alex Kenney MD at 12:22 EDT ,
[2023-11-08 10:12] LABS: Hematocrit 43.6 % (37-47); Hemoglobin 14.5 g/dL (12.0-15.0); Mean Corp Hgb Conc 33.3 g/dL (32-36); Mean Corpuscular Hgb 28.2 pg (27.0-32.0); Mean Corpuscular Volume 84.8 fL (81-99); Mean Platelet Vol. 9.6 fl (6.2-12.0); Platelet Count 400 K/mm3 (150-450); RBC Distribution Width CV 12.6 % (11.6-14.6); RBC Distribution Width SD 38.7 fl (35.1-43.9); Red Blood Count 5.14 M/mm3 (4.2-5.4); White Blood Count 10.7 K/mm3 (4.4-11.0)
[2023-11-11 16:09] LABS: Endomysial Antibody IgA Negative (Negative); Immunoglobulin A 110 mg/dL (87-352); t-Transglutaminase IgA <2 U/mL (0-3)
[2023-11-14 01:07] LABS: Almond <0.10 kU/L (Class 0); Apple <0.10 kU/L (Class 0); Beef <0.10 kU/L (Class 0); Carrot <0.10 kU/L (Class 0); Casein <0.10 kU/L (Class 0); Cashew <0.10 kU/L (Class 0); Chicken <0.10 kU/L (Class 0); Chocolate <0.10 kU/L (Class 0); Clam <0.10 kU/L (Class 0); Codfish <0.10 kU/L (Class 0); Corn <0.10 kU/L (Class 0); Crab <0.10 kU/L (Class 0); Egg, White <0.10 kU/L (Class 0); Egg, Whole <0.10 kU/L (Class 0); Egg, Yolk <0.10 kU/L (Class 0); Garlic <0.10 kU/L (Class 0); Gluten <0.10 kU/L (Class 0); Hazelnut/Filbert <0.10 kU/L (Class 0); Lactalbumin, Alpha <0.10 kU/L (Class 0); Lobster <0.10 kU/L (Class 0); Milk (Cow) <0.10 kU/L (Class 0); Oat <0.10 kU/L (Class 0); Onion <0.10 kU/L (Class 0); Orange <0.10 kU/L (Class 0); Pea <0.10 kU/L (Class 0); Peanut <0.10 kU/L (Class 0); Pecan <0.10 kU/L (Class 0); Pork <0.10 kU/L (Class 0); Potato, White <0.10 kU/L (Class 0); Rice <0.10 kU/L (Class 0); Rye <0.10 kU/L (Class 0); Salmon <0.10 kU/L (Class 0); Shrimp <0.10 kU/L (Class 0); Soybean <0.10 kU/L (Class 0); Strawberry <0.10 kU/L (Class 0); Tomato <0.10 kU/L (Class 0); Tuna <0.10 kU/L (Class 0); Walnut, (Food) <0.10 kU/L (Class 0); Wheat <0.10 kU/L (Class 0); Yeast <0.10 kU/L (Class 0)
[2023-11-14 13:09] LABS: Banana <0.10 kU/L (Class 0); Celery <0.10 kU/L (Class 0); Cheddar Cheese <0.10 kU/L (Class 0); Lettuce <0.10 kU/L (Class 0); Peach <0.10 kU/L (Class 0); Turkey <0.10 kU/L (Class 0)
== END | disposition home or self-care (01) ==
LOC: OPUS 08:18 → LAB 09:05
PROVIDERS: PCP Nurse Practitioner Family; Referring Provider Nurse Practitioner Family; Visit Provider Nurse Practitioner Family
DX: R10.84 Generalized abdominal pain (principal); E66.01 Morbid (severe) obesity due to excess calories; K52.9 Noninfective gastroenteritis and colitis, unspecified; Z98.890 Other specified postprocedural states; Z85.850 Personal history of malignant neoplasm of thyroid
CPT/HCPCS: 36415; 76705; 82784; 83516; 85027; 86003; 86255

== ENCOUNTER → 2023-12-03 | Outpatient (CLI) | payer MEDICAID, SELFPAY ==
[2023-12-03 13:24] LABS: Erythrocyte Sedimentation Rate 29 mm/hr (0-30)
[2023-12-03 14:53] LABS: Follicle Stimulating Hormone 4.2 mIU/mL; LDH 210 U/L (84-246); Rheumatoid Factor < 10.0 IU/mL (<15)
[2023-12-05 12:09] LABS: Anti-Centromere B Ab <0.2 AI (0.0-0.9); Anti-Chromatin <0.2 AI (0.0-0.9); Anti-Jo <0.2 AI (0.0-0.9); Anti-Scleroderma-70 AB <0.2 AI (0.0-0.9); Anti-dsDNA Ab 2 IU/mL (0-9); RNP Ab <0.2 AI (0.0-0.9); SJOGREN'S Anti-SS-A test < 0.2 AI (0.0-0.9); SJOGREN'S Anti-SS-B test < 0.2 AI (0.0-0.9); Smith Ab <0.2 AI (0.0-0.9)
[2023-12-10 11:10] LABS: ACCA 30 units (0-90); ALCA 13 units (0-60); AMCA 73 units (0-100); Albumin 3.5 g/dL (2.9-4.4); Alpha-1-Globulins 0.3 g/dL (0.0-0.4); CCP IgG Antibodies 8 units (0-19); Cytoplasmic Ab (C-ANCA) <1:20 titer (Neg:<1:20); Endomysial Antibody IgA Negative (Negative); Gamma Globulin 1.2 g/dL (0.4-1.8); Immunoglobulin A 123 mg/dL (87-352); Immunoglobulin E 44 IU/mL (6-495); Immunoglobulin G 1171 mg/dL (586-1602); Immunoglobulin M 159 mg/dL (26-217); PROEL- TOTAL PROTEIN 7.3 g/dL (6.0-8.5); Perinuclear Ab (P-ANCA) <1:20 titer (Neg:<1:20); QNTFERON TB Mitogen Value > 10.00 IU/mL (.); QNTFERON TB Nil Value 0.03 IU/mL (.); QNTFERON TB1+ Ag Value 0.33 IU/mL (.); QNTFERON TB2+ Ag Value 0.05 IU/mL (.); QNTIFERON TB Positive Criteria Negative (Negative); gASCA 15 units (0-50); t-Transglutaminase IgA <2 U/mL (0-3)
== END | disposition home or self-care (01) ==
LOC: LAB 12:10
PROVIDERS: PCP Nurse Practitioner Family; Referring Provider Internal Medicine Gastroenterology; Visit Provider Internal Medicine Gastroenterology
DX: K52.9 Noninfective gastroenteritis and colitis, unspecified (principal)
CPT/HCPCS: 36415; 82746; 82784; 82785; 83001; 83002; 83516; 83615; 84165; 85652; 86036; 86037; 86140; 86200; 86225; 86235; 86255; 86334; 86431; 86480; 86671

== ENCOUNTER → 2023-12-05 | Outpatient (CLI) | payer MEDICAID, SELFPAY ==
[2023-12-08 01:07] LABS: Calprotectin, Stool 118 ug/g (0-120); Fats, Neutral Normal (.); Fats, Total Normal (.)
[2023-12-09 03:06] LABS: Pancreatic Elastase, Fecal 198 (>200)
== END | disposition home or self-care (01) ==
PROVIDERS: PCP Nurse Practitioner Family; Referring Provider Internal Medicine Gastroenterology; Visit Provider Internal Medicine Gastroenterology
DX: K52.9 Noninfective gastroenteritis and colitis, unspecified (principal)
CPT/HCPCS: 87506; 82274; 82653; 82705; 83630; 83993; 87177; 87209; 87329; 87493

== ENCOUNTER 2024-03-11 18:30 | Emergency (ER) | payer MEDICAID, SELFPAY ==
[2024-03-11 18:31] VITALS: BP 138/93; PULSE 95; RESP 16; TEMP 36.7; O2SAT 98; BMI 41.1
--- NOTE | 2024-03-11 19:56 | RAD_ITS ---
PROCEDURE: CHEST 1 VIEW (PORTABLE) REASON FOR EXAM: Coughing. TECHNIQUE: Single frontal image including the chest and abdomen. COMPARISON: None. FINDINGS: The cardiothymic contour is normal. The lungs are clear. Bowel gas pattern is normal. No evidence of bowel obstruction or free air. The bones are unremarkable. No radiopaque foreign body is identified. RAD/Chest 1 View (Portable) IMPRESSION: UNREMARKABLE SINGLE VIEW OF THE CHEST AND ABDOMEN. Reading Location: [id number]
[2024-03-11 20:31] VITALS: BP 128/86; PULSE 74; RESP 16; O2SAT 98
--- NOTE | 2024-03-11 20:51 | EDS_ITS ---
HPI History of Present Illness Chief Complaint: General Illness Informant: patient Narrative Narrative: 33-year-old female presenting to the emergency room with a chief complaint of possible low calcium levels. Patient states that she has a history of hypocalcemia and a history of hypothyroidism status post thyroidectomy secondary to thyroid cancer. She notes paresthesias in her hands feeling of being off today. She has also had a cough with rattling in her chest that has been present for the past couple days. She denies any fever or headache. [facility] Medical History Wears contact lenses Wears glasses Cancer Thyroid disease Migraine headache Gastric reflux Former smoker History of echocardiogram Morbid obesity Chronic diarrhea Abdominal cramping Failure to progress in labor HPV (human papilloma virus) infection Family history of hearing loss at age younger than 7 years Anxiety LGSIL on Pap smear of cervix Thyroid cancer Hypocalcemia Hypothyroidism COVID-19 Thyroid cancer Home Medications ?Medication ?Instructions ?Recorded ?Last Taken ?Type calcium 250 mg 1 tab PO DAILY 10/19/20 Unknown History (citrate)-ergocalciferol (D2) 2.5 mcg (100 unit) tablet calcitriol 0.5 mcg capsule 0.5 mcg PO BID hypothyroidism 07/05/21 Unknown History levothyroxine 137 mcg tablet 137 mcg PO DAILY hypothyroidism 07/05/21 Unknown History norethindrone acetate 1 mg-ethinyl 1 tab PO QDAY 12/03/23 Unknown History estradiol 20 mcg tablet omeprazole 40 mg capsule,delayed 40 mg PO QDAY PRN nausea 12/03/23 Unknown History release topiramate 50 mg capsule,extended 50 mg PO BID 12/03/23 Unknown History release 24 hr [id number] 2 cap PO TID #90 caps 12/12/23 Unknown Rx 36,000-114,000-180,000 unit capsule,delay rel (Creon) Allergy/AdvReac Type Severity Reaction Status Date / Time prednisone Allergy Swelling Verified 03/11/24 18:31 Family History Other Diabetes Heart disease Hypertension Kidney disease Surgical History Delivery by section H/O thyroidectomy History of thyroidectomy Social History Smoking Status: Former smoker how long ago did patient quit smokin alcohol intake: current alcohol intake frequency: a few times a week details: once every few months socially substance use type: does not use ROS ROS ED Constitutional Constitutional ED: Denies chills, fever(s) or weight loss Eyes Eyes: Denies change in vision or diplopia ENT ENT ED: Denies ear pain, rhinorrhea or sore throat Cardiovascular Cardiovascular: Denies chest pain, orthopnea, palpitations or racing heartbeat Respiratory/Chest Respiratory/Chest: Reports cough; Denies dyspnea or orthopnea Gastrointestinal Gastrointestinal: Denies abdominal pain, diarrhea, nausea or vomiting Genitourinary Genitourinary ED: Denies dysuria, hematuria or urinary frequency Musculoskeletal Musculoskeletal: Denies arthralgias or myalgias Integumentary Denies abscess or rash Neurologic Neurologic: Reports paresthesias RUE and LUE; Denies headache(s) or weakness Psychiatric Psychiatric: Denies anxiety, depression, suicidal ideation or suicidal thoughts Endocrine Endocrinology: Denies polydipsia, polyphagia or polyuria Allergic/Immunologic Allergic/Immunologic ED: Denies mouth swelling, tongue swelling or urticaria EXAM Physical Exam Const Vital Signs: 03/11/24 18:31 03/11/24 19:53 03/11/24 20:31 Temperature 98.1 F Temperature Source Oral Pulse Rate 95 Respiratory Rate 16 Respiratory Effort Normal Non-Labored Respiratory Pattern Normal Blood Pressure 138/93 H Blood Pressure Mean 108 Pulse Ox 98 Oxygen Delivery Method Room Air Room Air 03/11/24 20:31 03/11/24 22:00 03/11/24 22:44 Temperature 98.9 F Temperature Source Pulse Rate 74 62 62 Respiratory Rate 16 16 16 Respiratory Effort Respiratory Pattern Blood Pressure 128/86 H 142/93 H 142/93 H Blood Pressure Mean 100 109 109 Pulse Ox 98 98 98 Oxygen Delivery Method Positive well nourished and well developed General Appearance ED: well developed and NAD HEENT Reports normocephalic, head/scalp atraumatic and moist mucous membranes Eyes PERRL and EOMs intact bilaterally Neck no lymphadenopathy, supple and no JVD Resp normal respiratory effort and clear to auscultation bilaterally Cardio regular rate, regular rhythm and no murmurs GI normal to inspection, nondistended, normoactive bowel sounds and non-tender Palpation: soft Back/Spine no CVA tenderness and normal ROM Extremity normal to inspection General Extremety ED: Negative for edema General Extremity: Negative for edema Neuro oriented x3 and CN's II-XII intact bilaterally Sensorium / Orientation: alert Motor Exam: strength 5/5 throughout Psych mental status grossly normal Mood & Affect: Negative for depressed or tearful Skin no rashes or lesions noted and no wounds MDM MDM MDM Narrative Medical decision making narrative: Differential diagnosis includes but not limited to electrolyte abnormalities pneumonia bronchitis viral syndrome My independent interpretation of the chest x-ray is no distinct infiltrate. Radiology concurs. BMP was obtained along with magnesium. Sodium potassium magnesium within normal limits calcium noted to be low at 7 glucose of 102. Patient received 2 g of calcium gluconate. She will be discharged home with instructions to follow-up with endocrinology supportive care for the viral respi ratory illness. History & Record Review Discussion w/independent historian: Patient Lab Data Attestation: I reviewed the patient's lab results. Labs: Laboratory Results - last 24 hr 03/11/24 20:57 Sodium 140 Potassium 3.5 Chloride 107 Carbon Dioxide 25.0 Anion Gap 8 BUN 12 Creatinine 0.94 Estim Creat Clear Calc 92.45 Est GFR (MDRD) Af Amer 88 Est GFR (MDRD) Non-Af 73 BUN/Creatinine Ratio 12.7 Glucose 102 Calcium 7.0 L Magnesium 2.0 Radiography Diagnostic Testing: Clinical Impression(s) from Imaging Studies Chest X-Ray 03/11/24 19:56 IMPRESSION: UNREMARKABLE SINGLE VIEW OF THE CHEST AND ABDOMEN. Reading Location: [id number] Discharge Plan Triage Chief Complaint: General Illness ED Provider: Haroldo Sotelo Dx/Rx/DC Orders Clinical Impression: Viral respiratory illness, Hypocalcemia Prescriptions: No Action calcium citrate-vitamin D2 250 mg-2.5 mcg (100 unit) tablet 1 tab PO DAILY omeprazole 40 mg capsule,delayed release(DR/EC) 40 mg PO QDAY PRN (Reason: nausea) topiramate 50 mg capsule,extended release 24hr 50 mg PO BID norethindrone ac-eth estradiol 1-20 mg-mcg tablet 1 tab PO QDAY levothyroxine 137 mcg Tablet 137 mcg PO DAILY calcitriol 0.5 mcg Capsule 0.5 mcg PO BID Creon 36,000-114,000- 180,000 unit capsule,delayed release(DR/EC) 2 cap PO TID Qty: 90 3RF Rx Instructions: administer with meals and/or snacks Primary Care Provider: Bir Peña NP Referrals: Bri Peña NP, [facility] [Primary Care Provider] - As Needed Print Language: Kittitian Disposition Disposition: Home, Self Care Discharge Date/Time: 03/11/24 22:45
[2024-03-11 21:39] LABS: Anion Gap 8 (5-15); BUN 12 mg/dL (7-18); BUN/Creat Ratio 12.7 RATIO (10-20); Chloride 107 mmol/L (98-107); Creatinine, Serum 0.94 mg/dL (0.55-1.02); EST Glomerular Filtration Rate 73 mL/min (>60); Est Glom Filt Rate - Afr Amer 88 mL/min (>60); Estimated Creatinine Clearance 92.45 ml/min; Glucose 102 mg/dL (74-106); Potassium 3.5 mmol/L (3.5-5.1); Sodium Level 140 mmol/L (136-145)
[2024-03-11 22:00] VITALS: BP 142/93; PULSE 62; RESP 16; O2SAT 98
[2024-03-11] MEDS: Calcium Gluconate 1 GM/10 ML Vial 2 GM IV (22:02)
[2024-03-11 22:44] VITALS: BP 142/93; PULSE 62; RESP 16; TEMP 37.2; O2SAT 98
== END 2024-03-11 22:45 | disposition home or self-care (01) ==
PROVIDERS: Emergency Provider Emergency Medicine; PCP Nurse Practitioner Family; Visit Provider Emergency Medicine
DX: J06.9 Acute upper respiratory infection, unspecified (principal); E83.51 Hypocalcemia; Z87.891 Personal history of nicotine dependence; E89.0 Postprocedural hypothyroidism; R20.2 Paresthesia of skin; K21.9 Gastro-esophageal reflux disease without esophagitis
CPT/HCPCS: 71045; 80048; 83735; 94760; 96374; 99283; A4216; J0612